=== PATIENT | female | born 1995 | race Caucasian/White ===

== ENCOUNTER 2022-08-12 20:02 | Inpatient (IN) | payer MEDICAID ==
[~2022-08-12] VITALS: Ht 150 cm; Wt 72.1 kg
[2022-08-12] MEDS ORDERED: RHO(D) IMMUNE GLOBULIN 300 MCG/SYR IM ONE (23:00)
[2022-08-12] MEDS: LACTATED RINGERS 1,000 ML IV SCH (23:00)
[2022-08-12] MEDS ORDERED: LIDOCAINE HCL 1% 20ML VIAL (Pyxis) INJ INFIL SCH (23:00)
[2022-08-12] MEDS ORDERED: METHYLERGONOVINE MALEATE 0.2 MG/ML IM PRN (23:00)
[2022-08-12] MEDS ORDERED: CARBOPROST TROMETHAMINE 250 MCG/ML AMPUL IM PRN (23:00)
[2022-08-12] MEDS ORDERED: OXYTOCIN 30 UNITS/500ML NS PMX 500 ML IV SCH (23:00)
[2022-08-12] MEDS ORDERED: MISOPROSTOL 100MCG TABLET VG SCH (23:00)
[2022-08-12 23:46] LABS: CLARITY URINE CLOUDY (CLEAR); COLOR URINE YELLOW (YELLOW); KETONES URINE 2+ (NEGATIVE); LEUKOCYTE ESTERASE URINE 3+ (NEGATIVE); NITRITE URINE NEGATIVE (NEGATIVE); OCCULT BLOOD URINE 2+ (NEGATIVE); PROTEIN URINE TRACE (NEGATIVE); SPECIFIC GRAVITY URINE 1.025 (1.005-1.030); UROBILINOGEN URINE 0.2 E.U./dL (0.2-1.0)
[2022-08-12] MEDS ORDERED: FOLIC ACID (23:47)
[2022-08-12] MEDS ORDERED: FERR325T6 PO (23:47)
[2022-08-12] MEDS ORDERED: CALICUM (23:47)
[2022-08-12] MEDS ORDERED: PREN-176 PO (23:47)
[2022-08-12 23:56] LABS: INR 0.9; PARTIAL THROMBOPLASTIN TIME 27.1 sec (23.4-31.0); PROTHROMBIN TIME 9.6 sec (9.6-11.0)
[2022-08-13 00:12] LABS: *AMPHETAMINES SCREEN URINE NEGATIVE (NEGATIVE); *BARBITURATES SCREEN URINE NEGATIVE (NEGATIVE); *BENZODIAZEPINES SCREEN URINE NEGATIVE (NEGATIVE); *COCAINE SCREEN URINE NEGATIVE (NEGATIVE); CANNABINOID URINE SCREEN NEGATIVE (NEGATIVE); METHADONE URINE SCREEN NEGATIVE (NEGATIVE); OPIATES URINE SCREEN NEGATIVE (NEGATIVE); PHENCYCLIDINE URINE SCREEN NEGATIVE (NEGATIVE)
[2022-08-13 00:29] LABS: HEPATITIS B SURFACE ANTIGEN NEGATIVE
[2022-08-13] MEDS: LACTATED RINGERS 1,000 ML IV SCH ×2 (00:43→03:13)
[2022-08-13 00:55] LABS: BASOPHILS % 0.2 % (0.0-2.0); EOSINOPHILS % 0.3 % (0.0-5.0); HEMATOCRIT. 34.6 % (36.0-48.0); HEMOGLOBIN. 11.6 g/dL (12.0-16.0); LYMPHOCYTES % 8.5 % (20.0-50.0); MEAN CORPUSCULAR HEMOGLOBIN 28.6 pg (28.0-32.0); MEAN CORPUSCULAR VOLUME 85.3 fL (81.0-99.0); MEAN PLATELET VOLUME 8.8 fl (7.4-10.4); MONOCYTES % 6.9 % (2.0-8.0); NEUTROPHILS % 84.1 % (40.0-76.0); RED BLOOD CELL COUNT 4.05 mill/uL (4.2-5.4); RED CELL DISTRIBUTION WIDTH 15.2 % (11.6-14.6)
[2022-08-13 01:16] LABS: CHLORIDE 108 mEq/L (98-107)
[2022-08-13] MEDS: BUTORPHANOL TARTRATE 2 MG/ML VIAL IV PRN ×2 (01:20→03:38)
[2022-08-13 01:22] LABS: PLATELET 65 x1000/uL (130-400)
[2022-08-13] MEDS ORDERED: ONDANSETRON HCL 4MG/2ML INJ IV PRN (03:15)
[2022-08-13] MEDS ORDERED: OXYCODONE HCL/ACETAMINOPHEN 5/325MG TABLET PO PRN (06:30)
[2022-08-13] MEDS ORDERED: LANOLIN OINT 7GM TUBE TOP PRN (06:30)
[2022-08-13] MEDS ORDERED: IBUPROFEN 400MG TABLET PO PRN (06:30)
[2022-08-13] MEDS ORDERED: DIPHENHYDRAMINE 25MG CAPSULE PO PRN (06:30)
[2022-08-13] MEDS ORDERED: METHYLERGONOVINE MALEATE 0.2 MG/ML IM PRN (06:30)
[2022-08-13] MEDS ORDERED: GLYCERIN/WITCH HAZEL LEAF MEDICATED PAD TOP PRN (06:30)
[2022-08-13] MEDS ORDERED: BISACODYL 10MG SUPP PR PRN (06:30)
[2022-08-13] MEDS ORDERED: HEMORRHOIDAL SUPP PR PRN (06:30)
[2022-08-13] MEDS: OXYTOCIN 30 UNITS/500ML NS PMX 500 ML IV SCH ×2 (06:47→07:20)
[2022-08-13 08:00] VITALS: BP 97/78
[2022-08-13] MEDS: MAGNESIUM/ALUMINUM HYDROXIDE/SIMETHICONE 30ML UDC PO SCH ×3 (08:12→20:33)
[2022-08-13] MEDS: SIMETHICONE 80MG TABLET CHEW PO SCH ×3 (08:13→20:33)
[2022-08-13] MEDS: IBUPROFEN 800MG TABLET PO PRN ×2 (08:14→13:56)
[2022-08-13 09:00] VITALS: BP 96/51
[2022-08-13] MEDS ORDERED: PRENATAL VIT/FE FUMARATE/FA TABLET PO SCH (09:00)
[2022-08-13 12:00] VITALS: BP 88/42
[2022-08-13 16:00] VITALS: BP 94/47
[2022-08-13] MEDS ORDERED: MEASLES,MUMPS&RUBELLA VACCINE 1 VIAL SUBCUT ONE (18:00)
[2022-08-13] MEDS ORDERED: TETANUS, DIPHTHERIA, PERTUSSIS VAC/PF 0.5ML (>10YR OLD) IM ONE (18:00)
[2022-08-13 20:00] VITALS: BP 90/58
[2022-08-13] MEDS: DOCUSATE SODIUM 100MG CAPSULE PO SCH (20:33)
[2022-08-14 03:50] VITALS: BP 94/50
[2022-08-14] MEDS: IBUPROFEN 800MG TABLET PO PRN ×2 (03:59→17:45)
[2022-08-14 06:13] LABS: BASOPHILS % 0.1 % (0.0-2.0); EOSINOPHILS % 0.6 % (0.0-5.0); HEMATOCRIT. 29.4 % (36.0-48.0); HEMOGLOBIN. 9.9 g/dL (12.0-16.0); LYMPHOCYTES % 9.5 % (20.0-50.0); MEAN CORPUSCULAR VOLUME 86.2 fL (81.0-99.0); MEAN PLATELET VOLUME 10.2 fl (7.4-10.4); MONOCYTES % 3.5 % (2.0-8.0); NEUTROPHILS % 86.3 % (40.0-76.0); PLATELET 68 x1000/uL (130-400); RED BLOOD CELL COUNT 3.42 mill/uL (4.2-5.4)
[2022-08-14 07:24] VITALS: BP 90/45
[2022-08-14] MEDS: MAGNESIUM/ALUMINUM HYDROXIDE/SIMETHICONE 30ML UDC PO SCH ×4 (07:30→20:17)
[2022-08-14] MEDS: SIMETHICONE 80MG TABLET CHEW PO SCH ×4 (07:47→20:17)
[2022-08-14] MEDS: FERROUS SULFATE 325MG TABLET PO SCH ×3 (07:47→17:42)
[2022-08-14 15:35] VITALS: BP 88/41
[2022-08-14 19:15] VITALS: BP 104/53
[2022-08-14] MEDS: DOCUSATE SODIUM 100MG CAPSULE PO SCH (20:17)
[2022-08-15 04:00] VITALS: BP 102/55
[2022-08-15] MEDS: MAGNESIUM/ALUMINUM HYDROXIDE/SIMETHICONE 30ML UDC PO SCH (07:30)
[2022-08-15] MEDS: FERROUS SULFATE 325MG TABLET PO SCH (07:30)
[2022-08-15 07:53] LABS: BASOPHILS % 0.4 % (0.0-2.0); EOSINOPHILS % 1.1 % (0.0-5.0); HEMATOCRIT. 28.6 % (36.0-48.0); HEMOGLOBIN. 9.6 g/dL (12.0-16.0); LYMPHOCYTES % 15.1 % (20.0-50.0); MEAN CORPUSCULAR HEMOGLOBIN 28.8 pg (28.0-32.0); MEAN PLATELET VOLUME 9.8 fl (7.4-10.4); MONOCYTES % 5.4 % (2.0-8.0); PLATELET 71 x1000/uL (130-400); RED BLOOD CELL COUNT 3.33 mill/uL (4.2-5.4); RED CELL DISTRIBUTION WIDTH 15.2 % (11.6-14.6)
[2022-08-15] MEDS: SIMETHICONE 80MG TABLET CHEW PO SCH (07:53)
[2022-08-15 08:00] VITALS: BP 93/50
[2022-08-15] MEDS: IBUPROFEN 800MG TABLET PO PRN (11:29)
== END 2022-08-15 13:35 | disposition home or self-care (01) | DRG 560 ==
LOC: 8 EST LDRP 20:02 → OBSVTOIN 22:59 → 8EST 08-13 07:45
PROVIDERS: ADMIT Obstetrics & Gynecology; ATTEND Obstetrics & Gynecology
PROC: 10E0XZZ Delivery of Products of Conception, External Approach (ICD-10-PCS; principal; 2022-08-13)
DX: O48.0 Post-term pregnancy (principal); Z37.0 Single live birth; D62 Acute posthemorrhagic anemia; O99.02 Anemia complicating childbirth; Z20.822 Contact with and (suspected) exposure to COVID-19; O99.214 Obesity complicating childbirth; O99.12 Other diseases of the blood and blood-forming organs and certain disorders involving the immune mechanism complicating childbirth; O69.81X0 Labor and delivery complicated by cord around neck, without compression, not applicable or unspecified; Z3A.40 40 weeks gestation of pregnancy
CPT/HCPCS: 36415; 76805; 76818; 80053; 80305; 81003; 85025; 86592; 86703; 86762; 86850; 86900; 86920; 87340; 87426; 90707; 90715; 99281; G0378; J0595; J2405; J3490; A4315; J2590